=== PATIENT | male | born 1965 | race Caucasian/White ===

== ENCOUNTER 2023-05-02 08:02 | Outpatient (CLI) | payer BC, SELFPAY | END 2023-05-02 08:03 | disposition home or self-care (01) | PROVIDERS: Visit Provider Family Medicine | DX: E78.5 Hyperlipidemia, unspecified (principal); I10 Essential (primary) hypertension; E13.9 Other specified diabetes mellitus without complications; Z12.5 Encounter for screening for malignant neoplasm of prostate | CPT/HCPCS: 80048; 80061; 84153; 84681 ==

== ENCOUNTER 2024-03-06 09:10 | Outpatient (CLI) | payer BC, SELFPAY | END 2024-03-06 09:11 | disposition home or self-care (01) | PROVIDERS: PCP Family Medicine; Visit Provider Family Medicine | DX: E78.2 Mixed hyperlipidemia (principal); E11.65 Type 2 diabetes mellitus with hyperglycemia; Z79.84 Long term (current) use of oral hypoglycemic drugs | CPT/HCPCS: 80048; 80061 ==

== ENCOUNTER 2025-03-27 09:52 | Outpatient (CLI) | payer BC, SELFPAY | END 2025-03-27 09:53 | disposition home or self-care (01) | PROVIDERS: PCP Family Medicine; Visit Provider Family Medicine | DX: E11.9 Type 2 diabetes mellitus without complications (principal); E78.2 Mixed hyperlipidemia; I10 Essential (primary) hypertension; Z11.59 Encounter for screening for other viral diseases | CPT/HCPCS: 80053; 80061; 82043; 82570; 82607; 86803; G0103 ==

== ENCOUNTER 2025-03-28 12:27 | Outpatient (CLI) | payer BC, SELFPAY | END 2025-03-28 12:28 | disposition home or self-care (01) | PROVIDERS: PCP Family Medicine; Visit Provider Family Medicine | DX: E11.9 Type 2 diabetes mellitus without complications (principal); E78.2 Mixed hyperlipidemia; I10 Essential (primary) hypertension | CPT/HCPCS: 80048; 82043; 82570; 83880 ==